=== PATIENT | female | born 1955 | race African-American/Black ===

== ENCOUNTER 2017-07-06 12:01 | Inpatient (IN) | END 2017-07-15 14:20 | disposition home health service (06) | DRG 871 ==

== ENCOUNTER 2018-07-17 09:06 | Emergency (ER) | payer MEDICARE, OTHER, MEDICAID ==
[~2018-07-17] VITALS: Ht 152.4 cm; Wt 100.0 kg
[~2018-07-17 09:06] MED LIST: ADV10050 INHALATION; ADV25050 INHALATION; ALBU8.5H8 INH; AMLO-145 PO; ATOR40TA68 PO; FENT1PAT7 TD; FERR1TAB14 PO; LANT3I SC; LORA-444 PO; METF-849 PO; MONT10TA24 PO; ROPI0.253 PO; ZIPR60CA2 PO; ZOF8 PO
[2018-07-17 09:14] VITALS: Ht 152.4 cm; Wt 100.0 kg
[2018-07-17] MEDS ORDERED: DIPHTH/TET/ACEL PERTUSS (ADULT) 0.5 ML VIAL IM* ONE (09:30)
[2018-07-17] MEDS ORDERED: HYDROCODONE/APAP (5/325) TAB PO ONE (10:30)
[2018-07-17] MEDS ORDERED: LIDOCAINE 1% (MDV) 20 ML INJ SC ONE (11:30)
[2018-07-17] MEDS ORDERED: KETOROLAC 15 MG INJ IM STA (12:21)
--- NOTE | 2018-07-17 12:51 | ERD ---
ER Documentation Chief Complaint Chief Complaint LAC TO R ANKLE AFTER MECHINCAL FALL NO KO HPI This is a 63-year-old female presents for evaluation of mechanical fall, she sustained a laceration to her right thigh. Also complains of shoulder and clavicle pain on the right side. She had no head trauma, no loss of c onsciousness, she denies any neck pain. She has not any blood thinners, she is chronically on oxygen. ROS All systems reviewed and are negative except as per history of present illness. Medications Home Meds Active Scripts Salmeterol Xinaf-Fluticasone* (Advair*) 100/50 Diskus Inhaler, 1 INH INHALATION BID, #1 INHALER Prov:AGO,MALCOLM V. PIGMENT PRESSER 07/15/17 Albuterol Sulfate* (Proair HFA*) 8.5 Gm Hfa.aer.ad, 2 PUFF INH Q4H PRN for WHEEZING AND SOB, #1 INHALER Prov:GAO,MALCOLM V. PIGMENT PRESSER 07/15/17 Ferrous Fumarate/Ascorbic Acid (Jitendra-Sequels 65-25 mg Caplet) 1 Each Tablet.er, 1 TAB PO DAILY, #30 TAB Prov:GAO,MALCOLM V. PIGMENT PRESSER 07/15/17 Montelukast Sodium* (Montelukast Sodium*) 10 Mg Tablet, 10 MG PO HS, #30 TAB Prov:GAO,MALCOLM V. PIGMENT PRESSER 07/15/17 Reported Medications Fentanyl Patch* (Duragesic Patch*) 12 Mcg/Hr Transdermal Patch, 1 PATCH TD Q72H PRN for PAIN, PATCH 07/07/17 Insulin Glargine* (Lantus*) 100 Unit/Ml Soln, 6 UNIT SC DAILY, #1 VIAL 07/06/17 Metformin* (Glucophage*) 500 Mg Tab, 500 MG PO BID, #30 TAB 07/06/17 Lorazepam* (Ativan*) 2 Mg Tablet, 2 MG PO DAILY PRN for ANXIETY, #30 TAB 07/06/17 Amlodipine Besylate* (Amlodipine Besylate*) 5 Mg Tablet, 5 MG PO DAILY, #30 TAB 07/06/17 Ropinirole Hcl* (Ropinirole Hcl*) 0.25 Mg Tablet, 0.25 MG PO HS, TAB 07/06/17 Atorvastatin* (Atorvastatin*) 40 Mg Tablet, 40 MG PO QHS, #30 TAB 07/06/17 Ondansetron Hcl* (Zofran*) 8 Mg Tab, 8 MG PO Q8 PRN for NAUSEA AND OR VOMITING, TAB 07/06/17 Salmeterol Xinaf/Fluticasone* (Advair*) 250-50 Diskus Inhaler, 1 INH INHALATION BID, #1 INHALER 07/06/17 Ziprasidone* (Geodon*) 60 Mg Capsule, 60 MG PO BID, CAP 07/06/17 Allergies Allergies: Coded Allergies: No Known Allergy (Unverified , 07/06/17) PMhx/Soc History of Surgery: Yes Anesthesia Reaction: No 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 Neck: Full range of motion. No meningismus. Resp: Clear to auscultation bilaterally Cardio: Regular rate and rhythm, no murmurs Abd: Soft, non tender, non distended. Normal bowel sounds Skin: No petechiae or rashes Back: No midline or flank tenderness Ext: There is tenderness over the distal clavicle, range of motion is limited secondary to pain, there is no axillary numbness, radial pulses 2+. There is a 5 cm laceration that is vertical over the lateral side of the lower leg, tibial pulses 2+, plantar and dorsiflexion is intact. Neur: Awake and alert Psych: Normal Mood and Affect Results 24 hrs Current Medications Medications Dose Sig/Benjamin Start Time Status Last (Trade) Ordered Route PRN Stop Time Admin Dose Reason Admin Diphtheria/ 0.5 ml ONCE ONCE 07/17/18 DC 07/17/18 Tetanus/Acell IM* 09:30 07/17/18 09:32 Pertussis 09:31 (Adacel) 2 tab ONCE ONCE 07/17/18 DC 07/17/18 Acetaminophen PO 10:30 07/17/18 10:37 / 10:31 Hydrocodone Bitart (Sagle (5/325)) Lidocaine 5 ml ONCE ONCE 07/17/18 DC 07/17/18 (Xylocaine SC 11:30 07/17/18 11:31 1% (Mdv) 20 11:31 ml) Ketorolac 15 mg ONCE STAT 07/17/18 DC 07/17/18 Tromethamine IM 12:21 07/17/18 12:29 (Toradol) 12:23 Procedures/MDM This is a 63-year-old female who presents for evaluation of mechanical fall, her x-ray confirmed distal clavicle fracture, that is closed, she has had no laceration without any evidence of fracture. Laceration was repaired without complications, she had no neurovascular deficits, sling was placed and patient was provided copies of her imaging advised to follow-up with her doctor soon as possible for orthopedic referral. At discharge she was in no acute distress. Laceration Repair by me: Anesthesia: 1% lidocaine without epinephrine locally Location: Right lower leg Tendon/Joint/Nerves: No injury Foreign body: None detected after copious irrigation and exploration Technique: Running suture Complexity: No subcutaneous sutures/mucosal repair/edge excision Post Closure Length: 5 cm Patient's bleeding was easily controlled in the department and there is no indication of anemia. No evidence of compartment syndrome, neurologic injury, vascular injury, open joint, tendon laceration, or foreign body. Patient is appropriate for outpatient follow up. 48 hour wound check. Scar minimization instructions given. Departure Diagnosis: Primary Impression: Laceration Additional Impression: Clavicle fracture Encounter type: initial encounter Clavicle location: unspecified part of clavicle Fracture type: closed Fracture alignment: displaced Laterality: right Qualified Codes: S42.001A - Fracture of unspecified part of right clavicle, initial encounter for closed fracture Condition: Stable Patient Instructions: Sammy Mcclendon DAVID MD Jul 17, 2018 12:51
[2018-07-17 13:21] VITALS: BP 134/64; PULSE 74; RESP 20
== END 2018-07-17 13:33 | disposition home or self-care (01) ==
LOC: E/R 09:06
DX: S42.001A Fracture of unspecified part of right clavicle, initial encounter for closed fracture (principal); R40.2142 Coma scale, eyes open, spontaneous, at arrival to emergency department; R40.2362 Coma scale, best motor response, obeys commands, at arrival to emergency department; F17.210 Nicotine dependence, cigarettes, uncomplicated; M25.511 Pain in right shoulder; W18.30XA Fall on same level, unspecified, initial encounter; Y92.9 Unspecified place or not applicable; Z23 Encounter for immunization; Z79.4 Long term (current) use of insulin
CPT/HCPCS: 12002; 71045; 73030; 73590; 90471; 90715; 96372; 99284; J1885

== ENCOUNTER 2018-07-27 10:57 | Emergency (ER) | payer MEDICARE, OTHER, MEDICAID ==
[~2018-07-27] VITALS: Ht 165.1 cm; Wt 79.5 kg
[2018-07-27 11:12] VITALS: BP 116/58; PULSE 102; RESP 22; Ht 165.1 cm; Wt 79.5 kg
--- NOTE | 2018-07-27 12:48 | ERD ---
ER Documentation Chief Complaint Chief Complaint WOUND CHECK WITH POSSIBLE SUTURE REMOVAL HPI 63-year-old female presenting for suture removal. Patient had sutures placed in her right lateral leg 10 days ago after she cut herself on a brick wall. She states that there is no pain or swelling noted to the site. She has no fevers. Medical history: CA. NKDA. Surgical history denies. Social history smokes pack a day. ROS All systems reviewed and are negative except as per history of present illness. Medications Home Meds Active Scripts Salmeterol Xinaf-Fluticasone* (Advair*) 100/50 Diskus Inhaler, 1 INH INHALATION BID, #1 INHALER Prov:GAO,MALCOLM V. COKE INSPECTOR 07/15/17 Albuterol Sulfate* (Proair HFA*) 8.5 Gm Hfa.aer.ad, 2 PUFF INH Q4H PRN for WHEEZING AND SOB, #1 INHALER Prov:GAO,MALCOLM V. COKE INSPECTOR 07/15/17 Ferrous Fumarate/Ascorbic Acid (Jitendra-Sequels 65-25 mg Caplet) 1 Each Tablet.er, 1 TAB PO DAILY, #30 TAB Prov:GAO,MALCOLM V. COKE INSPECTOR 07/15/17 Montelukast Sodium* (Montelukast Sodium*) 10 Mg Tablet, 10 MG PO HS, #30 TAB Prov:GAO,MALCOLM V. COKE INSPECTOR 07/15/17 Reported Medications Fentanyl Patch* (Duragesic Patch*) 12 Mcg/Hr Transdermal Patch, 1 PATCH TD Q72H PRN for PAIN, PATCH 07/07/17 Insulin Glargine* (Lantus*) 100 Unit/Ml Soln, 6 UNIT SC DAILY, #1 VIAL 07/06/17 Metformin* (Glucophage*) 500 Mg Tab, 500 MG PO BID, #30 TAB 07/06/17 Lorazepam* (Ativan*) 2 Mg Tablet, 2 MG PO DAILY PRN for ANXIETY, #30 TAB 07/06/17 Amlodipine Besylate* (Amlodipine Besylate*) 5 Mg Tablet, 5 MG PO DAILY, #30 TAB 07/06/17 Ropinirole Hcl* (Ropinirole Hcl*) 0.25 Mg Tablet, 0.25 MG PO HS, TAB 07/06/17 Atorvastatin* (Atorvastatin*) 40 Mg Tablet, 40 MG PO QHS, #30 TAB 07/06/17 Ondansetron Hcl* (Zofran*) 8 Mg Tab, 8 MG PO Q8 PRN for NAUSEA AND OR VOMITING, TAB 07/06/17 Salmeterol Xinaf/Fluticasone* (Advair*) 250-50 Diskus Inhaler, 1 INH INHALATION BID, #1 INHALER 07/06/17 Ziprasidone* (Geodon*) 60 Mg Capsule, 60 MG PO BID, CAP 07/06/17 Allergies Allergies: Coded Allergies: No Known Allergy (Unverified , 07/06/17) PMhx/Soc History of Surgery: Yes Anesthesia Reaction: No 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 There are no rales, wheezes or rhonchi. HEART: Regular rate and rhythm. No murmurs, clicks, rubs or gallops. No S3 or S4. EXTREMITIES: Equal pulses bilaterally. There is no peripheral clubbing, cyanosi s or edema. No focal swelling or erythema. Full range of motion. Grossly neurovascularly intact. SKIN: Healed laceration with sutures intact noted to right lower extremity. No dehiscence of the wound and no erythema. Procedures/MDM ER course: Suture removed without complication. MDM: 63-year-old female presenting for suture removals. Patient sutures removed without complication in the ER. I have low suspicion for wound infection. I have low suspicion for neuro deficit. Patient is discharged stricter precautions and told to follow-up with primary care within 1-2 days for close evaluation. Patient is told symptoms change or worsen to return immediately to the ER. All questions answered at discharge Departure Diagnosis: Primary Impression: Visit for suture removal Condition: Stable Patient Instructions: Suture Removal, No Complication Referrals: [facility] YOU HAVE RECEIVED A MEDICAL SCREENING EXAM AND THE RESULTS INDICATE THAT YOU DO NOT HAVE A CONDITION THAT REQUIRES URGENT TREATMENT IN THE EMERGENCY DEPARTMENT. FURTHER EVALUATION AND TREATMENT OF YOUR CONDITION CAN WAIT UNTIL YOU ARE SEEN IN YOUR DOCTORS OFFICE WITHIN THE NEXT 1-2 DAYS. IT IS YOUR RESPONSIBILITY TO MAKE AN APPOINTMENT FOR FOLOW-UP CARE. IF YOU HAVE A PRIMARY DOCTOR --you should call your primary doctor and schedule an appointment IF YOU DO NOT HAVE A PRIMARY DOCTOR YOU CAN CALL OUR PHYSICIAN REFERRAL HOTLINE AT IF YOU CAN NOT AFFORD TO SEE A PHYSICIAN YOU CAN CHOSE FROM THE FOLLOW[facility] [address] [facility]. [facility] [address] [facility]. [facility] [address] [facility] [facility] [address] [facility]. [facility] [address] [facility]. [facility] [address] Additional Instructions: Call your primary care doctor TOMORROW for an appointment during the next 1-2 days.See the doctor sooner or return here if your condition worsens before your appointment time. ADALBERTO YIN PA-C Jul 27, 2018 12:48
== END 2018-07-27 12:37 | disposition home or self-care (01) ==
LOC: FTE 10:57
DX: Z48.02 Encounter for removal of sutures (principal); Z79.4 Long term (current) use of insulin; Z87.891 Personal history of nicotine dependence
CPT/HCPCS: 99281

== ENCOUNTER 2018-12-03 15:00 | Emergency (ER) | payer MEDICARE, OTHER, MEDICAID ==
[~2018-12-03] VITALS: Ht 165.1 cm; Wt 79.5 kg
[2018-12-03 15:12] VITALS: Ht 165.1 cm; Wt 79.5 kg
[2018-12-03] MEDS ORDERED: SOD CHLORIDE 0.9% 800 ML IV ONE (19:00)
[2018-12-03] MEDS ORDERED: NITR-58 PO (19:51)
[2018-12-03] MEDS ORDERED: IBUPROFEN 800 MG TAB PO ONE (20:00)
[2018-12-03] MEDS ORDERED: NITROFURANTOIN (SR) 100 MG CAP PO ONE (20:00)
[2018-12-03 20:26] VITALS: BP 108/71; PULSE 79; RESP 20
--- NOTE | 2018-12-03 21:40 | ERD ---
ER Documentation Chief Complaint Chief Complaint HIGH BLOOD SUGAR, BLISTERS ON FEET, COLD SYMPTOMS HPI Patient is a 63-year-old female with diabetes who presents with "high sugar". She said that it started 2 days ago. She says that she takes her insulin and pills as directed. She has had frequent urination but no fevers. Upon review of old medical records this is the patient's fourth visit to the ER since 2017. She says that she does have a primary doctor. ROS All systems reviewed and are negative except as per history of present illness. Medications Home Meds Active Scripts Nitrofurantoin Monohyd Macrocr* (Macrobid*) 100 Mg Capsr, 100 MG PO BID for 7 Days, CAP Prov:BRYCE STANTON MD 12/03/18 Salmeterol Xinaf-Fluticasone* (Advair*) 100/50 Diskus Inhaler, 1 INH INHALATION BID, #1 INHALER Prov:MALCOLM GAO V. LAUNCH OPERATOR 07/15/17 Albuterol Sulfate* (Proair HFA*) 8.5 Gm Hfa.aer.ad, 2 PUFF INH Q4H PRN for WHEEZING AND SOB, #1 INHALER Prov:MALCOLM GAO V. LAUNCH OPERATOR 07/15/17 Ferrous Fumarate/Ascorbic Acid (Jitendra-Sequels 65-25 mg Caplet) 1 Each Tablet.er, 1 TAB PO DAILY, #30 TAB Prov:MALCOLM GAO V. LAUNCH OPERATOR 07/15/17 Montelukast Sodium* (Montelukast Sodium*) 10 Mg Tablet, 10 MG PO HS, #30 TAB Prov:MALCOLM GAO V. LAUNCH OPERATOR 07/15/17 Reported Medications Fentanyl Patch* (Duragesic Patch*) 12 Mcg/Hr Transdermal Patch, 1 PATCH TD Q72H PRN for PAIN, PATCH 07/07/17 Insulin Glargine* (Lantus*) 100 Unit/Ml Soln, 6 UNIT SC DAILY, #1 VIAL 07/06/17 Metformin* (Glucophage*) 500 Mg Tab, 500 MG PO BID, #30 TAB 07/06/17 Lorazepam* (Ativan*) 2 Mg Tablet, 2 MG PO DAILY PRN for ANXIETY, #30 TAB 07/06/17 Amlodipine Besylate* (Amlodipine Besylate*) 5 Mg Tablet, 5 MG PO DAILY, #30 TAB 07/06/17 Ropinirole Hcl* (Ropinirole Hcl*) 0.25 Mg Tablet, 0.25 MG PO HS, TAB 07/06/17 Atorvastatin* (Atorvastatin*) 40 Mg Tablet, 40 MG PO QHS, #30 TAB 07/06/17 Ondansetron Hcl* (Zofran*) 8 Mg Tab, 8 MG PO Q8 PRN for NAUSEA AND OR VOMITING, TAB 07/06/17 Salmeterol Xinaf/Fluticasone* (Advair*) 250-50 Diskus Inhaler, 1 INH INHALATION BID, #1 INHALER 07/06/17 Ziprasidone* (Geodon*) 60 Mg Capsule, 60 MG PO BID, CAP 07/06/17 Allergies Allergies: Coded Allergies: No Known Allergy (Unverified , 07/06/17) PMhx/Soc History of Surgery: Yes Anesthesia Reaction: No 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 Neck: Full range of motion. No meningismus. Resp: Clear to auscultation bilaterally Cardio: Regular rate and rhythm, no murmurs Abd: Soft, non tender, non distended. Normal bowel sounds Skin: No petechiae or rashes Back: No midline or flank tenderness Ext: No cyanosis, or edema Neur: Awake and alert Psych: Normal Mood and Affect Result Diagram: 12/03/18191012/03/181910 Results 24 hrs Laboratory Tests Test 12/03/18 15:18 12/03/18 18:55 12/03/18 19:11 12/03/18 19:17 Bedside Glucose 207 mg/dL 150 mg/dL Blood Gas Blood venous Specimen Source Arterial Blood 12/03/2018 7:10: Date Drawn 13 PM Arterial Blood VENOUS LINE Gas Puncture Site [place] Test N/A Venous Blood pH 7.412 Venous Blood 43.7 mmHG pCO2 (Temp Corrected) Venous Blood pO2 30.9 mmHG (Temp Corrected) Venous Blood 27.2 mmol/L HCO3 Venous Blood 60.8 mmHG Oxygen Saturation Venous Blood 2.2 mmol/L Base Excess Venous Blood 14.2 g/dl Total Hemoglobin Venous Blood 60.2 % Oxyhemoglobin Venous Blood 0.2 % Methemoglobin Carboxyhemoglobi 0.8 % n Blood Gas 37.0 C Temperature Blood Gas ROOM AIR Modality FiO2 21.0 % Blood Gas KM Notified Whom Blood Gas 12/03/2018 7:19: Notified Time 43 PM White Blood 4.5 10^3/ul Count Red Blood Count 5.35 10^6/ul Hemoglobin 13.0 g/dl Hematocrit 43.3 % Mean Corpuscular 80.9 fl Volume Mean Corpuscular 24.3 pg Hemoglobin Mean Corpuscular 30.0 g/dl Hemoglobin Karine nt Red Cell 15.8 % Distribution Width Platelet Count 161 10^3/UL Mean Platelet 10.5 fl Volume Immature 1.100 % Granulocytes % Neutrophils % 56.5 % Lymphocytes % 24.4 % Monocytes % 13.9 % Eosinophils % 3.4 % Basophils % 0.7 % Nucleated Red 0.0 /100WBC Blood Cells % Immature 0.050 10^3/ul Granulocytes # Neutrophils # 2.5 10^3/ul Lymphocytes # 1.1 10^3/ul Monocytes # 0.6 10^3/ul Eosinophils # 0.2 10^3/ul Basophils # 0.0 10^3/ul Nucleated Red 0.0 10^3/ul Blood Cells # Urine Color YELLOW Urine Clarity CLOUDY Urine pH 5.0 Urine Specific 1.025 [place] Urine Ketones NEGATIVE mg/dL Urine Nitrite NEGATIVE mg/dL Urine Bilirubin NEGATIVE mg/dL Urine NEGATIVE mg/dL Urobilinogen Urine Leukocyte 2+ Cherrie/ul Esterase Urine 2 /HPF Microscopic RBC Urine 34 /HPF Microscopic WBC Urine Squamous FEW /HPF Epithelial Cells Urine Bacteria MANY /HPF Urine Mucus MANY /HPF Urine Hemoglobin NEGATIVE mg/dL Urine Glucose 1+ mg/dL Urine Total 1+ mg/dl Protein Sodium Level 141 mmol/L Potassium Level 4.0 mmol/L Chloride Level 104 mmol/L Carbon Dioxide 29 mmol/L Level Anion Gap 8 Blood Urea 15 mg/dl Nitrogen Creatinine 0.79 mg/dl Est Glomerular > 60 mL/min Filtrat Rate mL/min Glucose Level 174 mg/dl Calcium Level 10.0 mg/dl Phosphorus Level 3.3 mg/dl Magnesium Level 2.3 mg/dl Current Medications Medications Dose Sig/Benjamin Start Time Status Last (Trade) Ordered Route PRN Stop Time Admin Dose Reason Admin Sodium 800 ml @ ONCE ONCE 12/03/18 DC 12/03/18 Chloride 800 mls/hr IV 19:00 19:19 12/03/18 19:59 100 mg ONCE ONCE 12/03/18 DC 12/03/18 Nitrofurantoi PO 20:00 19:57 n 12/03/18 20:01 Macrocrystals (Macrobid) Ibuprofen 800 mg ONCE ONCE 12/03/18 DC 12/03/18 (Motrin) PO 20:00 19:57 12/03/18 20:01 Procedures/MDM Smoking Cessation Therapy: Pt. was lectured for greater than 3 minutes on the health risks of continued smoking and the benefits of cessation. Patient is a 63-year-old female who was concerned about hyperglycemia. Her sugars are normal in the emergency department. However she was found to have acute cystitis. I doubt hyperglycemia or DKA. The patient will be treated as an outpatient with Macrobid. She was given the first dose in the emergency department. I doubt sepsis and I do not believe patient requires inpatient admission at this time. She should follow-up with her primary doctor within 24 to 48 hours. She can return sooner for any worsening symptoms. Departure Diagnosis: Primary Impression: Cystitis Condition: Fair Patient Instructions: Cystitis Referrals: Your doctor Additional Instructions: Call your primary care doctor TOMORROW for an appointment during the next 1-2 days.See the doctor sooner or return here if your condition worsens before your appointment time. BRYCE STANTON MD December 03, 2018 21:40
== END 2018-12-03 20:28 | disposition home or self-care (01) ==
LOC: E/R 15:00
DX: N30.90 Cystitis, unspecified without hematuria (principal); F17.210 Nicotine dependence, cigarettes, uncomplicated; E11.9 Type 2 diabetes mellitus without complications; Z79.4 Long term (current) use of insulin
CPT/HCPCS: 36415; 80048; 81001; 82803; 82962; 83735; 84100; 85025; 99284; J7030

== ENCOUNTER 2018-12-07 09:01 | Inpatient (IN) | payer MEDICARE, OTHER, MEDICAID ==
[~2018-12-07] VITALS: Ht 162.6 cm; Wt 74.9 kg
[~2018-12-07 09:01] MED LIST changes: +NITR-58 PO
[2018-12-07] MEDS ORDERED: ALBUTEROL 0.083% (NEB) 2.5 MG/3 ML AMP HHN STA (09:28)
[2018-12-07] MEDS ORDERED: AZITHROMYCIN 500MG/NS (PMX) 250 ML IV STA (09:28)
[2018-12-07] MEDS ORDERED: CEFTRIAXONE 1 GM/50 ML (PMX) 50 ML IVPB STA (09:28)
[2018-12-07] MEDS ORDERED: METHYLPREDNISOLONE 125 MG INJ IV ONE (09:30)
[2018-12-07] MEDS ORDERED: IPRATROPIUM (NEB) 0.5 MG/2.5 ML AMP INH ONE (09:30)
[2018-12-07] MEDS ORDERED: KETOROLAC 30 MG INJ IV STA (10:45)
[2018-12-07] MEDS ORDERED: AMLO5TAB4 PO (11:24)
[2018-12-07] MEDS ORDERED: ATOR40TA68 PO (11:25)
[2018-12-07] MEDS ORDERED: LANT3I SC (11:25)
[2018-12-07] MEDS ORDERED: NOVO3I SC (11:26)
[2018-12-07] MEDS ORDERED: LORA-444 PO (11:26)
[2018-12-07] MEDS ORDERED: METF500T24 PO (11:27)
[2018-12-07] MEDS ORDERED: ROPI0.253 PO (11:27)
[2018-12-07] MEDS ORDERED: ADV25050 INHALATION (11:27)
[2018-12-07] MEDS ORDERED: ZIPR60CA2 PO (11:28)
[2018-12-07] MEDS ORDERED: ACETAMINOPHEN 325 MG TAB PO PRN (11:30)
[2018-12-07] MEDS ORDERED: ONDANSETRON 4 MG INJ IV PRN (11:30)
--- NOTE | 2018-12-07 12:30 | ERD ---
ER Documentation Chief Complaint Chief Complaint sob , seen here 2 days ago c/o same HPI Patient is a 63-year-old female with COPD and diabetes who presents with shortness of breath. The symptoms started today. The patient has a history of COPD. The patient has had no treatment as of yet. The patient is currently on antibiotics for a urine infection. Her primary doctor is Dr. Bailey. Upon review of old medical records the patient has multiple visits to the ER for various complaints. I saw her myself just a few days ago. ROS All systems reviewed and are negative except as per history of present illness. Medications Home Meds Reported Medications Ziprasidone* (Geodon*) 60 Mg Capsule, 60 MG PO BID, CAP 12/07/18 Salmeterol Xinaf/Fluticasone* (Advair*) 250-50 Diskus Inhaler, 1 INH INHALATION BID, #1 INHALER 12/07/18 Ropinirole Hcl* (Ropinirole Hcl*) 0.25 Mg Tablet, 0.25 MG PO HS, TAB 12/07/18 Metformin Hcl* (Metformin Hcl*) 500 Mg Tablet, 500 MG PO WITH BREAKFAST DINNE, #60 TAB 12/07/18 Lorazepam* (Ativan*) 2 Mg Tablet, 2 MG PO DAILY PRN for ANXIETY, #30 TAB 12/07/18 Insulin Aspart* (Novolog Insulin Pen*) 100 Unit/Ml Soln, 4 UNIT SC WITH MEALS, EA 12/07/18 Insulin Glargine* (Lantus*) 100 Unit/Ml Soln, 4 UNIT SC DAILY, #1 VIAL 12/07/18 Atorvastatin* (Atorvastatin*) 40 Mg Tablet, 40 MG PO QHS, #30 TAB 12/07/18 Amlodipine Besylate* (Norvasc*) 5 Mg Tablet, 5 MG PO DAILY, TAB 12/07/18 Discontinued Reported Medications Fentanyl Patch* (Duragesic Patch*) 12 Mcg/Hr Transdermal Patch, 1 PATCH TD Q72H PRN for PAIN, PATCH 07/07/17 Insulin Glargine* (Lantus*) 100 Unit/Ml Soln, 6 UNIT SC DAILY, #1 VIAL 07/06/17 Metformin* (Glucophage*) 500 Mg Tab, 500 MG PO BID, #30 TAB 07/06/17 Lorazepam* (Ativan*) 2 Mg Tablet, 2 MG PO DAILY PRN for ANXIETY, #30 TAB 07/06/17 Amlodipine Besylate* (Amlodipine Besylate*) 5 Mg Tablet, 5 MG PO DAILY, #30 TAB 07/06/17 Ropinirole Hcl* (Ropinirole Hcl*) 0.25 Mg Tablet, 0.25 MG PO HS, TAB 07/06/17 Atorvastatin* (Atorvastatin*) 40 Mg Tablet, 40 MG PO QHS, #30 TAB 07/06/17 Ondansetron Hcl* (Zofran*) 8 Mg Tab, 8 MG PO Q8 PRN for NAUSEA AND OR VOMITING, TAB 07/06/17 Salmeterol Xinaf/Fluticasone* (Advair*) 250-50 Diskus Inhaler, 1 INH INHALATION BID, #1 INHALER 07/06/17 Ziprasidone* (Geodon*) 60 Mg Capsule, 60 MG PO BID, CAP 07/06/17 Discontinued Scripts Nitrofurantoin Monohyd Macrocr* (Macrobid*) 100 Mg Capsr, 100 MG PO BID for 7 Days, CAP Prov:BRYCE STANTON MD 12/03/18 Salmeterol Xinaf-Fluticasone* (Advair*) 100/50 Diskus Inhaler, 1 INH INHALATION BID, #1 INHALER Prov:GAO,MALCOLM V. [employer]AB POLISHER 07/15/17 Albuterol Sulfate* (Proair HFA*) 8.5 Gm Hfa.aer.ad, 2 PUFF INH Q4H PRN for WH EEZING AND SOB, #1 INHALER Prov:GAO,MALCOLM V. [employer]ER 07/15/17 Ferrous Fumarate/Ascorbic Acid (Jitendra-Sequels 65-25 mg Caplet) 1 Each Tablet.er, 1 TAB PO DAILY, #30 TAB Prov:GAO,MALCOLM V. [employer]ER 07/15/17 Montelukast Sodium* (Montelukast Sodium*) 10 Mg Tablet, 10 MG PO HS, #30 TAB Prov:GAO,MALCOLM V. 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) Hx Respiratory Disorders: Yes Hx Cardiac Disorders: No Hx Psychiatric Problems: Yes Hx Miscellaneous Medical Probl: No Hx Alcohol Use: No Hx Substance Use: No Hx Tobacco Use: Yes (2 PACKS /DAY) FmHx Family History: diabetes Physical Exam Vitals Vital Signs Date Temp Pulse Resp B/P (MAP) Pulse Ox O2 O2 Flow FiO2 Time Delivery Rate 12/07/18 98.8 114 22 124/63 95 Nasal 2.0 11:00 (83) Cannula 12/07/18 105 20 136/71 95 Nasal 4.0 10:00 (92) Cannula 12/07/18 Simple 10 09:54 Mask 12/07/18 10.0 09:54 12/07/18 106 30 92 Nasal 2.0 09:36 Cannula 12/07/18 98.1 110 32 140/82 92 09:09 (101) Physical Exam Const: Moderate distress, unable to speak in full sentences Head: Atraumatic Eyes: Normal Conjunctiva ENT: Normal External Ears, Nose and Mouth. Neck: Full range of motion. No meningismus. Resp: Wheezing diffusely, unable to complete full sentences Cardio: Regular rate and rhythm, no murmurs Abd: Soft, non tender, non distended. Normal bowel sounds Skin: No petechiae or rashes Back: No midline or flank tenderness Ext: No cyanosis, or edema Neur: Awake and alert Psych: Normal Mood and Affect Result Diagram: 12/07/1894712/07/18947 Results 24 hrs Laboratory Tests Test 12/07/18 09:48 12/07/18 09:52 White Blood Count 6.7 10^3/ul Red Blood Count 5.11 10^6/ul Hemoglobin 12.5 g/dl Hematocrit 41.5 % Mean Corpuscular Volume 81.2 fl Mean Corpuscular Hemoglobin 24.5 pg Mean Corpuscular Hemoglobin Concent 30.1 g/dl Red Cell Distribution Width 15.9 % Platelet Count 132 10^3/UL Mean Platelet Volume 10.5 fl Immature Granulocytes % 0.300 % Neutrophils % 76.5 % Lymphocytes % 13.5 % Monocytes % 8.6 % Eosinophils % 0.6 % Basophils % 0.5 % Nucleated Red Blood Cells % 0.0 /100WBC Immature Granulocytes # 0.020 10^3/ul Neutrophils # 5.1 10^3/ul Lymphocytes # 0.9 10^3/ul Monocytes # 0.6 10^3/ul Eosinophils # 0.0 10^3/ul Basophils # 0.0 10^3/ul Nucleated Red Blood Cells # 0.0 10^3/ul Sodium Level 142 mmol/L Potassium Level 3.3 mmol/L Chloride Level 108 mmol/L Carbon Dioxide Level 22 mmol/L Anion Gap 12 Blood Urea Nitrogen 13 mg/dl Creatinine 0.71 mg/dl Est Glomerular Filtrat Rate mL/min > 60 mL/min Glucose Level 303 mg/dl Calcium Level 9.1 mg/dl Troponin I < 0.012 ng/ml POC Venous Lactate 1.7 mmol/L Current Medications Medications Dose Sig/Benjamin Start Time Status Last (Trade) Ordered Route PRN Stop Time Admin Dose Reason Admin 125 mg ONCE ONCE 12/07/18 DC 12/07/18 Methylprednis IV 09:30 10:05 olone Sodium 12/07/18 09:31 Succinate (Solu-Medrol) Albuterol 5 mg ONCE STAT 12/07/18 DC 12/07/18 (Proventil HHN 09:28 09:36 0.083% (Neb)) 12/07/18 09:29 Ipratropium 0.5 mg ONCE ONCE 12/07/18 DC 12/07/18 [place] INH 09:30 09:36 (Atrovent 12/07/18 09:31 0.02% (Neb)) Azithromycin 250 ml @ ONCE STAT 12/07/18 DC 12/07/18 250 mls/hr IV 09:28 11:08 12/07/18 10:27 Ceftriaxone 50 ml @ ONCE STAT 12/07/18 DC 12/07/18 Sodium 100 mls/hr IVPB 09:28 10:05 12/07/18 09:57 Ketorolac 30 mg ONCE STAT 12/07/18 DC 12/07/18 Tromethamine IV 10:45 11:08 (Toradol) 12/07/18 10:46 Ondansetron 4 mg BRIDGE ORDER 12/07/18 HCl (Zofran PRN IV 11:30 Inj) NAUSEA/VOMITI 12/08/18 11:29 NG 650 mg ER BRIDGE 12/07/18 Acetaminophen PRN PO 11:30 (Tylenol .MILD PAIN 12/08/18 11:29 Tab) 1-3 OR TEMP Procedures/MDM EKG read by me: Rate/Rhythm: Sinus tachycardia rate of 106 Intervals: Normal Impression: Tachycardia without ischemia Chest x-ray read by radiology. Smoking Cessation Therapy: Pt. was lectured for greater than 3 minutes on the health risks of continued smoking and the benefits of cessation. Patient is a 63-year-old female with COPD and diabetes and smoking who presents with shortness of breath. I believe the patient has an acute COPD exacerbation. The patient was given albuterol, Atrovent, and Solu-Medrol. The patient was also given ceftriaxone and Zithromax for presumed bronchitis. The patient will be admitted to the care of the panel team to a medical surgical bed for continued breathing treatments and steroids. I doubt sepsis, pneumonia, or pneumothorax. Departure Diagnosis: Primary Impression: COPD exacerbation Additional Impression: Shortness of breath Condition: BRYCE Parra MD December 07, 2018 12:30
[2018-12-07] MEDS ORDERED: HYDROmorphONE 2 MG TAB PO ONE (15:00)
--- NOTE | 2018-12-07 15:29 | HP ---
Date/Time of Note Date/Time of Note DATE: 12/07/18 TIME: 15:09 Assessment/Plan VTE Prophylaxis SCD applied (from Nsg): Yes Pharmacological prophylaxis: heparin Lines/Catheters IV Catheter Type (from Nrsg): Port-A-CAth Assessment/Plan Hospital Course Alert Oriented Tardive dyskinesia of face Edentulous Mild tachypnea, nonlabored Audible wheezing, productive cough RRR Soft nt nd no edema Flat neck veins 63 yo female with h/o COPD, breast cancer, schizophernia, DMII presents wtih acute hypoxic respiratory failure likely 2/2 copd exacerbation COPD exacerbation: - Bronchodilators, steroids, abx, and O2 as needed Schizophrenia: - Continue geodon DMII: - Basal/bolus insulin Result Diagram: 12/07/1894712/07/18947 Results 24hrs Laboratory Tests Test 12/07/18 09:48 12/07/18 09:52 12/07/18 12:34 White Blood Count 6.7 # Red Blood Count 5.11 Hemoglobin 12.5 Hematocrit 41.5 Mean Corpuscular Volume 81.2 L Mean Corpuscular Hemoglobin 24.5 L Mean Corpuscular Hemoglobin Concent 30.1 L Red Cell Distribution Width 15.9 H Platelet Count 132 L Mean Platelet Volume 10.5 H Immature Granulocytes % 0.300 Neutrophils % 76.5 Lymphocytes % 13.5 L Monocytes % 8.6 Eosinophils % 0.6 Basophils % 0.5 Nucleated Red Blood Cells % 0.0 Immature Granulocytes # 0.020 Neutrophils # 5.1 Lymphocytes # 0.9 Monocytes # 0.6 Eosinophils # 0.0 Basophils # 0.0 Nucleated Red Blood Cells # 0.0 Sodium Level 142 Potassium Level 3.3 L Chloride Level 108 Carbon Dioxide Level 22 Anion Gap 12 Blood Urea Nitrogen 13 Creatinine 0.71 Est Glomerular Filtrat Rate mL/min > 60 Glucose Level 303 H Calcium Level 9.1 Troponin I < 0.012 POC Venous Lactate 1.7 Lactic Acid Level 4.0 *H HPI/ROS Admit Date/Time Admit Date/Time Hx of Present Illness 63 yo female with COPD, schizophrenia, neuorpathy and DMII who presents wtih SOB [place] has had SOB and wheeazing for at least the last week. Has cough with productive sputum. No fevers or chills. Came to ED a few days ago for same symptoms and sent home. Returns with walteritnued sOB, cough, wheeze ROS Constitutional: no complaints, improved Eyes: no complaints ENT: no complaints Respiratory: no complaints Cardiovascular: no complaints Gastrointestinal: no complaints Genitourinary: no complaints Musculoskeletal: no complaints Skin: no complaints Neurologic: no complaints Endocrine: no complaints Lymphatic: no complaints Psychological: no complaints, nl mood/affect Immunologic: no complaints PMH/Family/Social Past Medical History Breast cancer COPD Schizophrenia Medications Current Medications Ondansetron HCl (Zofran Inj) 4 mg BRIDGE ORDER PRN IV NAUSEA/VOMITING; Start 12/07/18 at 11:30; Stop 12/08/18 at 11:29 Acetaminophen (Tylenol Tab) 650 mg ER BRIDGE PRN PO .MILD PAIN 1-3 OR TEMP; Start 12/07/18 at 11:30; Stop 12/08/18 at 11:29 Albuterol/ Ipratropium (Duoneb) 3 ml Q4H RESP THERAPY HHN ; Start 12/07/18 at 17:00 Prednisone (Prednisone) 40 mg DAILY PO ; Start 12/08/18 at 09:00 Amlodipine Besylate (Norvasc) 5 mg DAILY PO ; Start 12/08/18 at 09:00; Status UNV Atorvastatin Calcium (Lipitor) 40 mg QHS PO ; Start 12/07/18 at 21:00; Status UNV Ropinirole HCl (Requip) 0.25 mg HS PO ; Start 12/07/18 at 21:00; Status UNV Ziprasidone (Geodon) 60 mg BID PO ; Start 12/07/18 at 21:00; Status UNV Hydromorphone HCl (Dilaudid) 2 mg ONCE ONCE PO ; Start 12/07/18 at 15:00; Stop 12/07/18 at 15:01; Status UNV Acetaminophen/ Hydrocodone Bitart ([place] (5/325)) 1 tab Q6H PRN PO .MOD PAIN 4- 6; Start 12/07/18 at 15:00; Status UNV Enoxaparin Sodium (Lovenox) 30 mg DAILY SC ; Start 12/08/18 at 09:00; Status UNV Miscellaneous Information (* Miscellaneous Pharmacy Order) Discontinue current oral sulfonylur... ONCE ONCE XX ; Start 12/07/18 at 15:00; Stop 12/07/18 at 15:01; Status UNV Insulin Glargine (Lantus) 12 units DAILY@2000 SC ; Start 12/07/18 at 20:00; Status UNV Insulin Aspart (Novolog Insulin Pen) 5 unit WITH MEALS SC ; Start 12/07/18 at 18:00; Status UNV Miscellaneous Information (* Miscellaneous Pharmacy Order) HYPOGLYCEMIA PROTOCOL w... ONCE ONCE XX ; Start 12/07/18 at 15:00; Stop 12/07/18 at 15:01; Status UNV Insulin Aspart (Novolog Insulin Pen) NOVOLOG *MILD* ALGORITHM WITH MEALS BEDTIME SC ; Start 12/07/18 at 18:00; Status UNV Coded Allergies: No Known Allergy (Unverified , 12/07/18) Exam/Review of Systems Vital Signs Vitals Vital Signs Date Temp Pulse Resp B/P (MAP) Pulse Ox O2 O2 Flow FiO2 Time Delivery Rate 12/07/18 98.8 114 22 124/63 95 Nasal 2.0 11:00 (83) Cannula GIL LERNER MD December 07, 2018 15:29
[2018-12-07] MEDS ORDERED: DEXTROSE 50% 50 ML SYRINGE IV PRN ×2 (15:30)
[2018-12-07] MEDS ORDERED: GLUCAGON 1 MG INJ IM PRN (15:30)
[2018-12-07] MEDS ORDERED: GLUCOSE GEL 15 GRAM TUBE PO PRN ×2 (15:30)
[2018-12-07] MEDS ORDERED: GLUCOSE GEL 15 GRAM TUBE BUCCAL PRN (15:30)
[2018-12-07] MEDS: ALBUTEROL/IPRATROPIUM (NEB) 3 ML AMP HHN SCH ×2 (17:00→20:15)
[2018-12-07 17:30] VITALS: BP 146/68; PULSE 93; RESP 18
[2018-12-07] MEDS: HYDROCODONE/APAP (5/325) TAB PO PRN (18:09)
[2018-12-07] MEDS: INSULIN ASPART [NOVOLOG] 3 ML PEN SC SCH ×3 (18:11→21:31)
[2018-12-07 18:35] VITALS: Ht 162.6 cm; Wt 74.9 kg
[2018-12-07 19:00] VITALS: RESP 18
[2018-12-07] MEDS ORDERED: INSULIN GLARGINE [LANTus] (100 UNITS/ML) SYG SC SCH (20:00)
[2018-12-07 20:30] VITALS: BP 123/75; PULSE 89; RESP 18
[2018-12-07] MEDS: ZIPRASIDONE 20 MG CAP PO SCH (21:26)
[2018-12-07] MEDS: ATORVASTATIN 40 MG TAB PO SCH (21:26)
[2018-12-07] MEDS: ROPINIROLE 0.25 MG TAB PO SCH (23:27)
[2018-12-08] MEDS: ALBUTEROL/IPRATROPIUM (NEB) 3 ML AMP HHN SCH ×6 (01:40→20:59)
[2018-12-08 02:19] VITALS: BP 149/83; PULSE 82; RESP 16
[2018-12-08] MEDS: HYDROCODONE/APAP (5/325) TAB PO PRN ×4 (03:52→23:49)
[2018-12-08 08:00] VITALS: BP 150/69; PULSE 81; RESP 18
[2018-12-08] MEDS: ENOXAPARIN 30 MG/0.3 ML SYG SC SCH (08:40)
[2018-12-08] MEDS: INSULIN ASPART [NOVOLOG] 3 ML PEN SC SCH ×7 (08:41→21:18)
[2018-12-08] MEDS: ZIPRASIDONE 20 MG CAP PO SCH ×2 (08:42→21:10)
[2018-12-08] MEDS: predniSONE 20 MG TAB PO SCH (08:42)
[2018-12-08] MEDS: AMLODIPINE 5 MG TAB PO SCH (08:43)
[2018-12-08] MEDS: AZITHROMYCIN 250 MG TAB PO SCH (12:48)
[2018-12-08] MEDS: CEFTRIAXONE 1 GM/50 ML (PMX) 50 ML IVPB SCH (12:49)
[2018-12-08] MEDS: KETOROLAC 15 MG INJ IV PRN ×2 (13:14→21:14)
[2018-12-08] MEDS ORDERED: ACETAMINOPHEN 325 MG TAB PO PRN (13:30)
[2018-12-08 14:00] VITALS: BP 135/62; PULSE 96; RESP 19
--- NOTE | 2018-12-08 14:02 | PN ---
Date/Time of Note Date/Time of Note DATE: 12/08/18 TIME: 13:59 Assessment/Plan VTE Prophylaxis Risk score (from Nsg)>0 risk: 4 SCD applied (from Nsg): Yes Pharmacological prophylaxis: heparin Lines/Catheters IV Catheter Type (from Nrsg): port Urinary Cath still in place: No Assessment/Plan Hospital Course Alert Oriented Tardive dyskinesia of face Edentulous Comfortable respiratory pattern nonlabored Faint wheezing, productive cough RRR Soft nt nd no edema Flat neck veins 63 yo female with h/o COPD, breast cancer, schizophernia, DMII presents wtih acute hypoxic respiratory failure likely 2/2 copd exacerbation COPD exacerbation: - Bronchodilators, steroids, abx, and O2 as needed Schizophrenia: - Continue geodon DMII: - Basal/bolus insulin Pain: - [place] PRN, toradol PRN Discharge likely tomorrow Result Diagram: 12/08/18 0525 12/08/18 0525 Results 24hrs Laboratory Tests Test 12/07/18 16:08 12/07/18 18:01 12/07/18 21:22 12/08/18 01:59 Lactic Acid Level 5.6 *H Bedside Glucose 338 H 306 H 237 H Test 12/08/18 05:25 12/08/18 08:38 12/08/18 12:45 White Blood Count 8.4 # Red Blood Count 4.85 Hemoglobin 12.0 Hematocrit 38.4 Mean Corpuscular 79.2 L Volume Mean Corpuscular 24.7 L Hemoglobin Mean Corpuscular 31.3 L Hemoglobin Concent Red Cell 15.8 H Distribution Width Platelet Count 175 # Mean Platelet Volume 10.6 H Immature 0.800 H Granulocytes % Neutrophils % 76.4 Lymphocytes % 13.1 L Monocytes % 9.5 Eosinophils % 0.1 Basophils % 0.1 Nucleated Red Blood 0.0 Cells % Immature 0.070 H Granulocytes # Neutrophils # 6.4 Lymphocytes # 1.1 Monocytes # 0.8 Eosinophils # 0.0 Basophils # 0.0 Nucleated Red Blood 0.0 Cells # Sodium Level 139 Potassium Level 4.3 Chloride Level 105 Carbon Dioxide Level 25 Anion Gap 9 Blood Urea Nitrogen 14 Creatinine 0.74 Est Glomerular > 60 Filtrat Rate mL/min Glucose Level 231 H Hemoglobin A1c 8.6 H Lactic Acid Level 1.1 Calcium Level 9.9 Total Bilirubin 0.3 Direct Bilirubin 0.00 Indirect Bilirubin 0.3 Aspartate Amino 14 L Transf (AST/SGOT) Alanine 25 Aminotransferase (AL T/SGPT) Alkaline Phosphatase 97 Total Protein 6.7 Albumin 3.9 Globulin 2.80 Albumin/Globulin 1.39 Ratio Bedside Glucose 190 277 H Subjective 24 Hr Interval Summary Free Text/Dictation Still feeling SOB but work of breathing and wheezing improved Continues to request opiates for neuropathic pain Exam/Review of Systems Exam Vitals Vital Signs Date Temp Pulse Resp B/P (MAP) Pulse Ox O2 O2 Flow FiO2 Time Delivery Rate 12/08/18 87 20 98 Nasal 2.0 12:49 Cannula 12/08/18 98.9 150/69 08:00 (96) Intake and Output 12/07/18 12/07/18 12/08/18 1515:00 23:00 07:00 IntakeIntake Total 300 ml 300 ml 320 ml BalanceBalance 300 ml 300 ml 320 ml Results Results 24hrs Laboratory Tests Test 12/07/18 16:08 12/07/18 18:01 12/07/18 21:22 12/08/18 01:59 Lactic Acid Level 5.6 *H Bedside Glucose 338 H 306 H 237 H Test 12/08/18 05:25 12/08/18 08:38 12/08/18 12:45 White Blood Count 8.4 # Red Blood Count 4.85 Hemoglobin 12.0 Hematocrit 38.4 Mean Corpuscular 79.2 L Volume Mean Corpuscular 24.7 L Hemoglobin Mean Corpuscular 31.3 L Hemoglobin Concent Red Cell 15.8 H Distribution Width Platelet Count 175 # Mean Platelet Volume 10.6 H Immature 0.800 H Granulocytes % Neutrophils % 76.4 Lymphocytes % 13.1 L Monocytes % 9.5 Eosinophils % 0.1 Basophils % 0.1 Nucleated Red Blood 0.0 Cells % Immature 0.070 H Granulocytes # Neutrophils # 6.4 Lymphocytes # 1.1 Monocytes # 0.8 Eosinophils # 0.0 Basophils # 0.0 Nucleated Red Blood 0.0 Cells # Sodium Level 139 Potassium Level 4.3 Chloride Level 105 Carbon Dioxide Level 25 Anion Gap 9 Blood Urea Nitrogen 14 Creatinine 0.74 Est Glomerular > 60 Filtrat Rate mL/min Glucose Level 231 H Hemoglobin A1c 8.6 H Lactic Acid Level 1.1 Calcium Level 9.9 Total Bilirubin 0.3 Direct Bilirubin 0.00 Indirect Bilirubin 0.3 Aspartate Amino 14 L Transf (AST/SGOT) Alanine 25 Aminotransferase (AL T/SGPT) Alkaline Phosphatase 97 Total Protein 6.7 Albumin 3.9 Globulin 2.80 Albumin/Globulin 1.39 Ratio Bedside Glucose 190 277 H Medications Medication Current Medications Albuterol/ Ipratropium (Duoneb) 3 ml Q4H RESP THERAPY HHN Last administered on 12/08/18 12:49; Admin Dose 3 ML; Start 12/07/18 at 17:00 Prednisone (Prednisone) 40 mg DAILY PO Last administered on 12/08/18 08:42; Admin Dose 40 MG; Start 12/08/18 at 09:00 Amlodipine Besylate (Norvasc) 5 mg DAILY PO Last administered on 12/08/18 08:43; Admin Dose 5 MG; Start 12/08/18 at 09:00 Atorvastatin Calcium (Lipitor) 40 mg QHS PO Last administered on 12/07/18 21:26; Admin Dose 40 MG; Start 12/07/18 at 21:00 Ropinirole HCl (Requip) 0.25 mg HS PO Last administered on 12/07/18 23:27; Admin Dose 0.25 MG; Start 12/07/18 at 21:00 Ziprasidone (Geodon) 60 mg BID PO Last administered on 12/08/18 08:42; Admin Dose 60 MG; Start 12/07/18 at 21:00 Acetaminophen/ Hydrocodone Bitart ([place] (5/325)) 1 tab Q6H PRN PO .MOD PAIN 4- 6 Last administered on 12/08/18 11:27; Admin Dose 1 TAB; Start 12/07/18 at 15:00 Enoxaparin Sodium (Lovenox) 30 mg DAILY SC Last administered on 12/08/18 08:40; Admin Dose 30 MG; Start 12/08/18 at 09:00 Insulin Glargine (Lantus) 12 units DAILY@2000 SC Last administered on 12/07/18 21:31; Admin Dose 12 UNITS; Start 12/07/18 at 20:00 Insulin Aspart (Novolog Insulin Pen) 5 unit WITH MEALS SC Last administered on 12/08/18 12:46; Admin Dose 5 UNIT; Start 12/07/18 at 17:37 Insulin Aspart (Novolog Insulin Pen) NOVOLOG *MILD* ALGORITHM WITH MEALS BED TIME SC Last administered on 12/08/18at 12:47; Admin Dose 4 UNIT; Start 12/07/18 at 18:00 Miscellaneous Information 1 ea NOTE XX ; Start 12/07/18 at 15:30 Glucose (Glutose) 15 gm Q15M PRN PO DECREASED GLUCOSE; Start 12/07/18 at 15:30 Glucose (Glutose) 22.5 gm Q15M PRN PO DECREASED GLUCOSE; Start 12/07/18 at 15:30 Dextrose (D50w Syringe) 25 ml Q15M PRN IV DECREASED GLUCOSE; Start 12/07/18 at 15:30 Dextrose (D50w Syringe) 50 ml Q15M PRN IV DECREASED GLUCOSE; Start 12/07/18 at 15:30 Glucagon (Glucagen) 1 mg Q15M PRN IM DECREASED GLUCOSE; Start 12/07/18 at 15:30 Glucose (Glutose) 15 gm Q15M PRN BUCCAL DECREASED GLUCOSE; Start 12/07/18 at 15:30 Ceftriaxone Sodium 50 ml @ 100 mls/hr Q24H IVPB Last administered on 12/08/18at 12:49; Admin Dose 100 MLS/HR; Start 12/08/18 at 12:00 Azithromycin (Zithromax) 250 mg DAILY PO Last administered on 12/08/18at 12:48; Admin Dose 250 MG; Start 12/08/18 at 12:30 Ketorolac Tromethamine (Toradol) 15 mg Q6H PRN IV PAIN Last administered on 12/08/18at 13:14; Admin Dose 15 MG; Start 12/08/18 at 13:00; Stop 12/11/18 at 12:59 Acetaminophen (Tylenol Tab) 650 mg Q6H PRN PO MILD PAIN(1-3)OR ELEVATED TEMP; Start 12/08/18 at 13:30 GIL LERNER MD December 08, 2018 14:02
--- NOTE | 2018-12-08 14:30 | CONS ---
DATE OF ADMISSION: 12/07/2018 DATE OF CONSULTATION: TYPE OF CONSULTATION: Pulmonary. REASON FOR CONSULTATION: Shortness of breath. Thank you, Dr. Washington, for this consultation. HISTORY OF PRESENT ILLNESS: This is a 63-year-old lady with an extensive prior tobacco history inclu ding history of breast cancer, schizophrenia, came in with several-day history of increasing shortnes s of breath, orthopnea, PND, increasing cough and chest congestion. She has yellow-green productive sputum, but denies any fever or chills. She has a previous extensive tobacco history. States she qu it smoking 1 year ago. The patient also states she is currently on home O2. PAST MEDICAL HISTORY: As above. MEDICATIONS: Per chart. ALLERGIES: NONE. SOCIAL HISTORY: Nonsmoker, no alcohol, no history of drug use. FAMILY HISTORY: Noncontributory. SYSTEMS REVIEW: A 12-point review of systems was negative other than as mentioned above. PHYSICAL EXAMINATION: GENERAL: Elderly-appearing lady, appears comfortable at rest, in no acute distress. VITAL SIGNS: Currently afebrile, temperature 98, pulse 87, blood pressure 150/69, O2 saturation 98% on 2 liters. NECK: Supple. She is edentulous with evidence of tardive dyskinesia. CARDIAC: S1, S2. No added sounds or murmurs. CHEST: Diminished air entry bilaterally with rhonchi. ABDOMEN: Soft, nontender. No guarding or rebound. EXTREMITIES: No cyanosis, clubbing. A 1+ edema. NEUROLOGIC: Grossly intact. No focal deficits. DIAGNOSTIC DATA: Chest x-ray showed mild vascular congestion. No infiltrates or effusions. LABORATORY DATA: White count 8.4, hemoglobin 12.0. BNP 175. Chemistry within normal limits. IMPRESSION AND PLAN: 1. Likely chronic obstructive pulmonary disease exacerbation. 2. Possible community-acquired pneumonia or tracheobronchitis. 3. Underlying history of schizophrenia. 4. History of breast cancer. The patient will require: 1. Continue antibiotics. 2. Bronchodilators. 3. Supplemental O2. 4. Check procalcitonin for evaluation of infection. 5. 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 Dictated By: MADIE WEINSTEIN/ECHO Conf#: [id number] DID#: [id number] CC: GIL WASHINGTON MD;*End*
[2018-12-08 20:34] VITALS: BP 145/93; PULSE 79; RESP 20
[2018-12-08] MEDS: ROPINIROLE 0.25 MG TAB PO SCH (21:10)
[2018-12-08] MEDS: ATORVASTATIN 40 MG TAB PO SCH (21:14)
[2018-12-08] MEDS: INSULIN GLARGINE [LANTus] (100 UNITS/ML) SYG SC SCH (21:17)
[2018-12-09] MEDS ORDERED: traZODone 50 MG TAB PO ONE (01:00)
[2018-12-09] MEDS: ALBUTEROL/IPRATROPIUM (NEB) 3 ML AMP HHN SCH ×6 (01:06→20:49)
[2018-12-09 02:30] VITALS: BP 130/59; PULSE 79; RESP 20
[2018-12-09 07:30] VITALS: BP 149/66; PULSE 78; RESP 18
[2018-12-09] MEDS: AMLODIPINE 5 MG TAB PO SCH (08:31)
[2018-12-09] MEDS: KETOROLAC 15 MG INJ IV PRN ×3 (08:31→21:39)
[2018-12-09] MEDS: ZIPRASIDONE 20 MG CAP PO SCH ×2 (08:31→21:25)
[2018-12-09] MEDS: predniSONE 20 MG TAB PO SCH (08:31)
[2018-12-09] MEDS: AZITHROMYCIN 250 MG TAB PO SCH (08:31)
[2018-12-09] MEDS: ENOXAPARIN 30 MG/0.3 ML SYG SC SCH (08:33)
[2018-12-09] MEDS: INSULIN ASPART [NOVOLOG] 3 ML PEN SC SCH ×7 (08:35→21:33)
[2018-12-09] MEDS: HYDROCODONE/APAP (5/325) TAB PO PRN ×3 (09:38→23:59)
[2018-12-09] MEDS ORDERED: HYDROmorphONE 1 MG/ML SYG IV ONE (11:00)
[2018-12-09] MEDS: CEFTRIAXONE 1 GM/50 ML (PMX) 50 ML IVPB SCH (11:22)
--- NOTE | 2018-12-09 11:34 | CONS ---
Consult Date/Type/Reason Admit Date/Time December 07, 2018 at 11:09 Initial Consult Date Type of Consult Pulmonary Date/Time of Note DATE: 12/09/18 TIME: 11:32 Subjective Patient stable this morning states her breathing is improving Objective Vital Signs Date Temp Pulse Resp B/P (MAP) Pulse Ox O2 O2 Flow FiO2 Time Delivery Rate 12/09/18 2.0 10:21 12/09/18 74 18 96 Nasal 08:49 Cannula 12/09/18 97.5 149/66 07:30 (93) Intake and Output 12/08/18 12/08/18 12/09/18 1515:00 23:00 07:00 IntakeIntake Total 50 ml 1100 ml BalanceBalance 50 ml 1100 ml Exam GENERAL: Well-nourished well-developed lady comfortable at rest VITAL SIGNS: per chart NECK: Supple. No JVD or lymphadenopathy. CARDIAC EXAM: S1, S2. No added sounds or murmurs. CHEST: Diminished air entry bilaterally but improved bronchospasm ABDOMEN: Soft, nontender. No guarding or rebound. EXTREMITIES: No cyanosis, clubbing or edema. NEUROLOGIC: Generalized weakness. No focal deficits. Results/Medications Result Diagram: 12/08/18 0525 12/08/18 0525 Results 24 hrs Laboratory Tests Test 12/08/18 12:45 12/08/18 14:56 12/08/18 17:20 12/08/18 21:08 Bedside Glucose 277 H 252 H 247 H Procalcitonin 0.07 Test 12/09/18 02:00 12/09/18 07:57 Bedside Glucose 245 H 258 H Medications Current Medications Albuterol/ Ipratropium (Duoneb) 3 ml Q4H RESP THERAPY HHN Last administered on 12/09/18at 08:48; Admin Dose 3 ML; Start 12/07/18 at 17:00 Prednisone (Prednisone) 40 mg DAILY PO Last administered on 12/09/18 08:31; Admin Dose 40 MG; Start 12/08/18 at 09:00 Amlodipine Besylate (Norvasc) 5 mg DAILY PO Last administered on 12/09/18 08:31; Admin Dose 5 MG; Start 12/08/18 at 09:00 Atorvastatin Calcium (Lipitor) 40 mg QHS PO Last administered on 12/08/18at 21:14; Admin Dose 40 MG; Start 12/07/18 at 21:00 Ropinirole HCl (Requip) 0.25 mg HS PO Last administered on 12/08/18at 21:10; Admin Dose 0.25 MG; Start 12/07/18 at 21:00 Ziprasidone (Geodon) 60 mg BID PO Last administered on 12/09/18 08:31; Admin Dose 60 MG; Start 12/07/18 at 21:00 Acetaminophen/ Hydrocodone Bitart ([place] (5/325)) 1 tab Q6H PRN PO .MOD PAIN 4- 6 Last administered on 12/09/18 09:38; Admin Dose 1 TAB; Start 12/07/18 at 15:00 Enoxaparin Sodium (Lovenox) 30 mg DAILY SC Last administered on 12/09/18 08:33; Admin Dose 30 MG; Start 12/08/18 at 09:00 Insulin Aspart (Novolog Insulin Pen) 5 unit WITH MEALS SC Last administered on 12/09/18 08:35; Admin Dose 5 UNIT; Start 12/07/18 at 17:37 Insulin Aspart (Novolog Insulin Pen) NOVOLOG *MILD* ALGORITHM WITH MEALS BEDTIME SC Last administered on 12/09/18 08:37; Admin Dose 3 UNIT; Start 12/07/18 at 18:00 Miscellaneous Information 1 ea NOTE XX ; Start 12/07/18 at 15:30 Glucose (Glutose) 15 gm Q15M PRN PO DECREASED GLUCOSE; Start 12/07/18 at 15:30 Glucose (Glutose) 22.5 gm Q15M PRN PO DECREASED GLUCOSE; Start 12/07/18 at 15:30 Dextrose (D50w Syringe) 25 ml Q15M PRN IV DECREASED GLUCOSE; Start 12/07/18 at 15:30 Dextrose (D50w Syringe) 50 ml Q15M PRN IV DECREASED GLUCOSE; Start 12/07/18 at 15:30 Glucagon (Glucagen) 1 mg Q15M PRN IM DECREASED GLUCOSE; Start 12/07/18 at 15:30 Glucose (Glutose) 15 gm Q15M PRN BUCCAL DECREASED GLUCOSE; Start 12/07/18 at 15:30 Ceftriaxone Sodium 50 ml @ 100 mls/hr Q24H IVPB Last administered on 12/09/18at 11:22; Admin Dose 100 MLS/HR; Start 12/08/18 at 12:00 Azithromycin (Zithromax) 250 mg DAILY PO Last administered on 12/09/18at 08:31; Admin Dose 250 MG; Start 12/08/18 at 12:30 Ketorolac Tromethamine (Toradol) 15 mg Q6H PRN IV PAIN Last administered on 12/09/18at 08:31; Admin Dose 15 MG; Start 12/08/18 at 13:00; Stop 12/11/18 at 12:59 Acetaminophen (Tylenol Tab) 650 mg Q6H PRN PO MILD PAIN(1-3)OR ELEVATED TEMP; Start 12/08/18 at 13:30 Insulin Glargine (Lantus) 16 units DAILY@2000 SC Last administered on 12/08/18at 21:17; Admin Dose 16 UNITS; Start 12/08/18 at 20:00 Assessment/Plan Hospital Course (Demo Recall) Assessment 1. COPD exacerbation 2. Possible commute acquired pneumonia 3. History of schizophrenia 4. history of breast cancer Plan 1. Continue steroids and antibiotics 2. Patient has home O2 continue current flow rate 3. Outpatient pulmonary function testing and follow-up with or 4. Patient declined correction facility anticipate discharge tomorrow MADIE ROMERO MD, [facility] December 09, 2018 11:34
[2018-12-09 14:15] VITALS: BP 143/64; PULSE 94; RESP 18
--- NOTE | 2018-12-09 14:50 | PN ---
Date/Time of Note Date/Time of Note DATE: 12/09/18 TIME: 14:50 Assessment/Plan VTE Prophylaxis Risk score (from Nsg)>0 risk: 8 SCD applied (from Nsg): Yes Pharmacological prophylaxis: heparin Lines/Catheters IV Catheter Type (from Nrsg): port-a-cath Urinary Cath still in place: No Assessment/Plan Hospital Course Alert Oriented Tardive dyskinesia of face Edentulous Comfortable respiratory pattern nonlabored Faint wheezing, productive cough RRR Soft nt nd no edema Flat neck veins 63 yo female with h/o COPD, breast cancer, schizophernia, DMII presents wtih acute hypoxic respiratory failure likely 2/2 copd exacerbation COPD exacerbation: - Bronchodilators, steroids, abx, and O2 as needed Schizophrenia: - Continue geodon DMII: - Basal/bolus insulin Pain: - [place] PRN, toradol PRN Discharge likely tomorrow Result Diagram: 12/08/1825 12/08/18 0525 Results 24hrs Laboratory Tests Test 12/08/18 14:56 12/08/18 17:20 12/08/18 21:08 12/09/18 02:00 Procalcitonin 0.07 Bedside Glucose 252 H 247 H 245 H Test 12/09/18 07:57 12/09/18 12:02 Bedside Glucose 258 H 247 H Subjective 24 Hr Interval Summary Free Text/Dictation Breathing improving Offered SNF but she declines Exam/Review of Systems Exam Vitals Vital Signs Date Temp Pulse Resp B/P (MAP) Pulse Ox O2 O2 Flow FiO2 Time Delivery Rate 12/09/18 98.5 94 18 143/64 98 Nasal 14:15 (90) Cannula 12/09/18 2.0 10:21 Intake and Output 12/08/18 12/08/18 12/09/18 1515:00 23:00 07:00 IntakeIntake Total 50 ml 1100 ml BalanceBalance 50 ml 1100 ml Results Results 24hrs Laboratory Tests Test 12/08/18 14:56 12/08/18 17:20 12/08/18 21:08 12/09/18 02:00 Procalcitonin 0.07 Bedside Glucose 252 H 247 H 245 H Test 12/09/18 07:57 12/09/18 12:02 Bedside Glucose 258 H 247 H Medications Medication Current Medications Albuterol/ Ipratropium (Duoneb) 3 ml Q4H RESP THERAPY HHN Last administered on 12/09/18 08:48; Admin Dose 3 ML; Start 12/07/18 at 17:00 Prednisone (Prednisone) 40 mg DAILY PO Last administered on 12/09/18 08:31; Admin Dose 40 MG; Start 12/08/18 at 09:00 Amlodipine Besylate (Norvasc) 5 mg DAILY PO Last administered on 12/09/18 08:31; Admin Dose 5 MG; Start 12/08/18 at 09:00 Atorvastatin Calcium (Lipitor) 40 mg QHS PO Last administered on 12/08/18 21 :14; Admin Dose 40 MG; Start 12/07/18 at 21:00 Ropinirole HCl (Requip) 0.25 mg HS PO Last administered on 12/08/18 21:10; Admin Dose 0.25 MG; Start 12/07/18 at 21:00 Ziprasidone (Geodon) 60 mg BID PO Last administered on 12/09/18 08:31; Admin Dose 60 MG; Start 12/07/18 at 21:00 Acetaminophen/ Hydrocodone Bitart ([place] (5/325)) 1 tab Q6H PRN PO .MOD PAIN 4- 6 Last administered on 12/09/18 09:38; Admin Dose 1 TAB; Start 12/07/18 at 15:00 Enoxaparin Sodium (Lovenox) 30 mg DAILY SC Last administered on 12/09/18 08:33; Admin Dose 30 MG; Start 12/08/18 at 09:00 Insulin Aspart (Novolog Insulin Pen) 5 unit WITH MEALS SC Last administered on 12/09/18 12:04; Admin Dose 5 UNIT; Start 12/07/18 at 17:37 Insulin Aspart (Novolog Insulin Pen) NOVOLOG *MILD* ALGORITHM WITH MEALS BEDTIME SC Last administered on 12/09/18 12:05; Admin Dose 3 UNIT; Start 12/07/18 at 18:00 Miscellaneous Information 1 ea NOTE XX ; Start 12/07/18 at 15:30 Glucose (Glutose) 15 gm Q15M PRN PO DECREASED GLUCOSE; Start 12/07/18 at 15:30 Glucose (Glutose) 22.5 gm Q15M PRN PO DECREASED GLUCOSE; Start 12/07/18 at 15 :30 Dextrose (D50w Syringe) 25 ml Q15M PRN IV DECREASED GLUCOSE; Start 12/07/18 at 15:30 Dextrose (D50w Syringe) 50 ml Q15M PRN IV DECREASED GLUCOSE; Start 12/07/18 at 15:30 Glucagon (Glucagen) 1 mg Q15M PRN IM DECREASED GLUCOSE; Start 12/07/18 at 15:30 Glucose (Glutose) 15 gm Q15M PRN BUCCAL DECREASED GLUCOSE; Start 12/07/18 at 15:30 Ceftriaxone Sodium 50 ml @ 100 mls/hr Q24H IVPB Last administered on 12/09/18at 11:22; Admin Dose 100 MLS/HR; Start 12/08/18 at 12:00 Azithromycin (Zithromax) 250 mg DAILY PO Last administered on 12/09/18at 08:31; Admin Dose 250 MG; Start 12/08/18 at 12:30 Ketorolac Tromethamine (Toradol) 15 mg Q6H PRN IV PAIN Last administered on 12/09/18 08:31; Admin Dose 15 MG; Start 12/08/18 at 13:00; Stop 12/11/18 at 12:59 Acetaminophen (Tylenol Tab) 650 mg Q6H PRN PO MILD PAIN(1-3)OR ELEVATED TEMP; Start 12/08/18 at 13:30 Insulin Glargine (Lantus) 16 units DAILY@2000 SC Last administered on 12/08/18at 21:17; Admin Dose 16 UNITS; Start 12/08/18 at 20:00 GIL LERNER MD December 09, 2018 14:50
[2018-12-09 20:15] VITALS: BP 148/71; PULSE 72; RESP 20
[2018-12-09] MEDS: ROPINIROLE 0.25 MG TAB PO SCH (21:26)
[2018-12-09] MEDS: ATORVASTATIN 40 MG TAB PO SCH (21:26)
[2018-12-09] MEDS: INSULIN GLARGINE [LANTus] (100 UNITS/ML) SYG SC SCH (21:31)
[2018-12-09] MEDS: HYDROmorphONE 0.5 MG/0.5 ML SYG IV PRN (21:34)
[2018-12-10] MEDS: ALBUTEROL/IPRATROPIUM (NEB) 3 ML AMP HHN SCH ×3 (01:35→08:07)
[2018-12-10] MEDS: HYDROmorphONE 0.5 MG/0.5 ML SYG IV PRN ×2 (01:50→08:38)
[2018-12-10 02:20] VITALS: BP 134/81; PULSE 67; RESP 18
[2018-12-10] MEDS: KETOROLAC 15 MG INJ IV PRN ×2 (03:38→09:49)
[2018-12-10] MEDS: AZITHROMYCIN 250 MG TAB PO SCH (08:41)
[2018-12-10] MEDS: ZIPRASIDONE 20 MG CAP PO SCH (08:41)
[2018-12-10] MEDS: AMLODIPINE 5 MG TAB PO SCH (08:41)
[2018-12-10] MEDS: predniSONE 20 MG TAB PO SCH (08:41)
[2018-12-10] MEDS: ENOXAPARIN 30 MG/0.3 ML SYG SC SCH (08:42)
[2018-12-10] MEDS: INSULIN ASPART [NOVOLOG] 3 ML PEN SC SCH ×4 (08:43→12:00)
[2018-12-10 10:37] VITALS: BP 171/79; PULSE 69; RESP 18
[2018-12-10] MEDS ORDERED: PRED20TA PO (10:54)
[2018-12-10] MEDS ORDERED: ADV25050 INHALATION (10:54)
[2018-12-10] MEDS ORDERED: ALBU90AE INHALATION (10:54)
[2018-12-10] MEDS ORDERED: METF500T24 PO (10:54)
--- NOTE | 2018-12-10 10:55 | PDOCDIS ---
Discharge Instructions DIAGNOSIS Discharge Diagnosis COPD exacerbation CONDITION [id number] Patient Condition: [id number] Stable FOLLOW UP/APPOINTMENTS Follow-up Plan I have prescribed your more days of prednisone to take for your COPD exacerbation, available to parts picker at [facility] Continue your inhalers as prescribed Increase your metformin dose from 500 mg to 1000 mg Check in with your primary care provider regarding detention management of your diabetes GIL LERNER MD December 10, 2018 10:55
[2018-12-10] MEDS: HYDROCODONE/APAP (5/325) TAB PO PRN (12:02)
[2018-12-10] MEDS: CEFTRIAXONE 1 GM/50 ML (PMX) 50 ML IVPB SCH (12:03)
--- NOTE | 2018-12-10 14:19 | CONS ---
Consult Date/Type/Reason Admit Date/Time December 07, 2018 at 11:09 Initial Consult Date Type of Consult Pulmonary Date/Time of Note DATE: 12/10/18 TIME: 14:18 Subjective Patient comfortable this morning. Less shortness of breath Objective Vital Signs Date Temp Pulse Resp B/P (MAP) Pulse Ox O2 O2 Flow FiO2 Time Delivery Rate 12/10/18 98.1 69 18 171/79 96 Room Air 10:37 (109) 12/10/18 2.0 08:36 12/10/18 27 01:35 Intake and Output 12/09/18 12/09/18 12/10/18 1515:00 23:00 07:00 IntakeIntake Total 550 ml 450 ml BalanceBalance 550 ml 450 ml Exam GENERAL: Well-nourished well-developed lady comfortable at rest VITAL SIGNS: per chart NECK: Supple. No JVD or lymphadenopathy. CARDIAC EXAM: S1, S2. No added sounds or murmurs. CHEST: clear bilaterally, No added sounds, rales or wheezes ABDOMEN: Soft, nontender. No guarding or rebound. EXTREMITIES: No cyanosis, clubbing or edema. NEUROLOGIC: Generalized weakness. No focal deficits. Vent Setting Fraction of Inspired Oxygen pe: 27 Results/Medications Result Diagram: 12/08/18 0525 12/08/18 0525 Results 24 hrs Laboratory Tests Test 12/09/18 17:11 12/09/18 21:23 12/10/18 03:03 12/10/18 07:56 Bedside Glucose 344 H 231 H 279 H 193 Test 12/10/18 11:44 Bedside Glucose 284 H Medications Current Medications Albuterol/ Ipratropium (Duoneb) 3 ml Q4H RESP THERAPY HHN Last administered on 12/10/18at 08:07; Admin Dose 3 ML; Start 12/07/18 at 17:00 Prednisone (Prednisone) 40 mg DAILY PO Last administered on 12/10/18 08:41; Admin Dose 40 MG; Start 12/08/18 at 09:00 Amlodipine Besylate (Norvasc) 5 mg DAILY PO Last administered on 12/10/18 08:41; Admin Dose 5 MG; Start 12/08/18 at 09:00 Atorvastatin Calcium (Lipitor) 40 mg QHS PO Last administered on 12/09/18at 21:26; Admin Dose 40 MG; Start 12/07/18 at 21:00 Ropinirole HCl (Requip) 0.25 mg HS PO Last administered on 12/09/18 21:26; Admin Dose 0.25 MG; Start 12/07/18 at 21:00 Ziprasidone (Geodon) 60 mg BID PO Last administered on 12/10/18 08:41; Admin Dose 60 MG; Start 12/07/18 at 21:00 Acetaminophen/ Hydrocodone Bitart ([place] (5/325)) 1 tab Q6H PRN PO .MOD PAIN 4- 6 Last administered on 12/10/18 12:02; Admin Dose 1 TAB; Start 12/07/18 at 15:00 Enoxaparin Sodium (Lovenox) 30 mg DAILY SC Last administered on 12/10/18 08:42; Admin Dose 30 MG; Start 12/08/18 at 09:00 Insulin Aspart (Novolog Insulin Pen) 5 unit WITH MEALS SC Last administered on 12/10/18 11:59; Admin Dose 5 UNIT; Start 12/07/18 at 17:37 Insulin Aspart (Novolog Insulin Pen) NOVOLOG *MILD* ALGORITHM WITH MEALS BEDTIME SC Last administered on 12/10/18 12:00; Admin Dose 4 UNIT; Start 12/07/18 at 18:00 Miscellaneous Information 1 ea NOTE XX ; Start 12/07/18 at 15:30 Glucose (Glutose) 15 gm Q15M PRN PO DECREASED GLUCOSE; Start 12/07/18 at 15:30 Glucose (Glutose) 22.5 gm Q15M PRN PO DECREASED GLUCOSE; Start 12/07/18 at 15:30 Dextrose (D50w Syringe) 25 ml Q15M PRN IV DECREASED GLUCOSE; Start 12/07/18 at 15:30 Dextrose (D50w Syringe) 50 ml Q15M PRN IV DECREASED GLUCOSE; Start 12/07/18 at 15:30 Glucagon (Glucagen) 1 mg Q15M PRN IM DECREASED GLUCOSE; Start 12/07/18 at 15:30 Glucose (Glutose) 15 gm Q15M PRN BUCCAL DECREASED GLUCOSE; Start 12/07/18 at 15:30 Ceftriaxone Sodium 50 ml @ 100 mls/hr Q24H IVPB Last administered on 12/10/18at 12:03; Admin Dose 100 MLS/HR; Start 12/08/18 at 12:00 Azithromycin (Zithromax) 250 mg DAILY PO Last administered on 12/10/18at 08:41; Admin Dose 250 MG; Start 12/08/18 at 12:30 Ketorolac Tromethamine (Toradol) 15 mg Q6H PRN IV PAIN Last administered on 12/10/18at 09:49; Admin Dose 15 MG; Start 12/08/18 at 13:00; Stop 12/11/18 at 12:59 Acetaminophen (Tylenol Tab) 650 mg Q6H PRN PO MILD PAIN(1-3)OR ELEVATED TEMP; Start 12/08/18 at 13:30 Insulin Glargine (Lantus) 16 units DAILY@2000 SC Last administered on 12/09/18at 21:31; Admin Dose 16 UNITS; Start 12/08/18 at 20:00 Assessment/Plan Hospital Course (Demo Recall) Assessment 1. COPD exacerbation 2. Possible commute acquired pneumonia 3. History of schizophrenia 4. history of breast cancer Plan 1. Continue steroids and antibiotics 2. Patient has home O2 continue current flow rate 3. Outpatient pulmonary function testing and follow-up with me Agree with discharge planning. MADIE ROMERO MD, [facility] December 10, 2018 14:19
--- NOTE | 2018-12-10 15:12 | DS ---
Date/Time of Note Date/Time of Note DATE: 12/10/18 TIME: 15:11 Discharge Summary Admission/Discharge Info Admit Date/Time December 07, 2018 at 11:09 Discharge Date/Time December 10, 2018 at 14:18 Discharge Diagnosis COPD exacerbation Patient Condition: Stable Hx of Present Illness 63 yo female with COPD, schizophrenia, neuorpathy and DMII who presents wtih SOB [place] has had SOB and wheeazing for at least the last week. Has cough with productive sputum. No fevers or chills. Came to ED a few days ago for same symptoms and sent home. Returns with conitnued sOB, cough, wheeze Hospital Course 63 yo female with h/o COPD, breast cancer, schizophernia, DMII presents wtih acute hypoxic respiratory failure likely 2/2 copd exacerbation COPD exacerbation: - Was treated wtih Bronchodilators, steroids, and abx and respiratory status improved to baseline Schizophrenia: - Continued geodon DMII: - Basal/bolus insulin Pain: - [place] PRN, toradol PRN She was offered SNF but declined Home Meds Active Scripts Albuterol Sulfate (Proair Respiclick) 90 Mcg Aer.pow.ba, 2 PUFFS INHALATION Q6 PRN for SHORTNESS OF BREATH, #1 BOTTLE 5 Refills Prov:GIL LERNER MD 12/10/18 Prednisone* (Prednisone*) 20 Mg Tab, 40 MG PO DAILY for 4 Days, #4 TAB Prov:GIL LERNER MD 12/10/18 Salmeterol Xinaf/Fluticasone* (Advair*) 250-50 Diskus Inhaler, 1 INH INHALATION BID for 30 Days, #1 INHALER 5 Refills Prov:GIL LERNER MD 12/10/18 Metformin Hcl* (Metformin Hcl*) 500 Mg Tablet, 1000 MG PO WITH BREAKFAST DINNE, #120 TAB 5 Refills Prov:GIL LERNER MD 12/10/18 Reported Medications Ziprasidone* (Geodon*) 60 Mg Capsule, 60 MG PO BID, CAP 12/07/18 Ropinirole Hcl* (Ropinirole Hcl*) 0.25 Mg Tablet, 0.25 MG PO HS, TAB 12/07/18 Lorazepam* (Ativan*) 2 Mg Tablet, 2 MG PO DAILY PRN for ANXIETY, #30 TAB 12/07/18 Insulin Aspart* (Novolog Insulin Pen*) 100 Unit/Ml Soln, 4 UNIT SC WITH MEALS, EA 12/07/18 Insulin Glargine* (Lantus*) 100 Unit/Ml Soln, 4 UNIT SC DAILY, #1 VIAL 12/07/18 Atorvastatin* (Atorvastatin*) 40 Mg Tablet, 40 MG PO QHS, #30 TAB 12/07/18 Amlodipine Besylate* (Norvasc*) 5 Mg Tablet, 5 MG PO DAILY, TAB 12/07/18 Discontinued Reported Medications Fentanyl Patch* (Duragesic Patch*) 12 Mcg/Hr Transdermal Patch, 1 PATCH TD Q72H PRN for PAIN, PATCH 07/07/17 Insulin Glargine* (Lantus*) 100 Unit/Ml Soln, 6 UNIT SC DAILY, #1 VIAL 07/06/17 Metformin* (Glucophage*) 500 Mg Tab, 500 MG PO BID, #30 TAB 07/06/17 Lorazepam* (Ativan*) 2 Mg Tablet, 2 MG PO DAILY PRN for ANXIETY, #30 TAB 07/06/17 Amlodipine Besylate* (Amlodipine Besylate*) 5 Mg Tablet, 5 MG PO DAILY, #30 TAB 07/06/17 Ropinirole Hcl* (Ropinirole Hcl*) 0.25 Mg Tablet, 0.25 MG PO HS, TAB 07/06/17 Atorvastatin* (Atorvastatin*) 40 Mg Tablet, 40 MG PO QHS, #30 TAB 07/06/17 Ondansetron Hcl* (Zofran*) 8 Mg Tab, 8 MG PO Q8 PRN for NAUSEA AND OR VOMITING, TAB 07/06/17 Salmeterol Xinaf/Fluticasone* (Advair*) 250-50 Diskus Inhaler, 1 INH INHALATION BID, #1 INHALER 07/06/17 Ziprasidone* (Geodon*) 60 Mg Capsule, 60 MG PO BID, CAP 07/06/17 Discontinued Scripts Nitrofurantoin Monohyd Macrocr* (Macrobid*) 100 Mg Capsr, 100 MG PO BID for 7 Days, CAP Prov:BRYCE STANTON MD 12/03/18 Salmeterol Xinaf-Fluticasone* (Advair*) 100/50 Diskus Inhaler, 1 INH INHALATION BID, #1 INHALER Prov:MALCOLM GAO NP 07/15/17 Albuterol Sulfate* (Proair HFA*) 8.5 Gm Hfa.aer.ad, 2 PUFF INH Q4H PRN for WHEEZING AND SOB, #1 INHALER Prov:GAO,MALCOLM V. SENIOR AUDITOR 07/15/17 Ferrous Fumarate/Ascorbic Acid (Jitendra-Sequels 65-25 mg Caplet) 1 Each Tablet.er, 1 TAB PO DAILY, #30 TAB Prov:GAO,MALCOLM V. SENIOR AUDITOR 07/15/17 Montelukast Sodium* (Montelukast Sodium*) 10 Mg Tablet, 10 MG PO HS, #30 TAB Prov:GAO,MALCOLM V. SENIOR AUDITOR 07/15/17 Follow-up Plan I have prescribed your more days of prednisone to take for your COPD exacerbation, available to pickling drum operator at [facility] Continue your inhalers as prescribed Increase your metformin dose from 500 mg to 1000 mg Check in with your primary care provider regarding fpc management of your diabetes Primary Care Provider Care Physician No Primary Pending Labs Laboratory Tests Test 12/09/18 17:11 12/09/18 21:23 12/10/18 03:03 12/10/18 07:56 Bedside 344 231 279 193 Glucose mg/dL (70-220) mg/dL (70-220) mg/dL (70-220) mg/dL (70-220) Test 12/10/18 11:44 Bedside 284 Glucose mg/dL (70-220) GIL LERNER MD December 10, 2018 15:12
== END 2018-12-10 14:18 | disposition home or self-care (01) | DRG 190 ==
LOC: E/R 09:01 → PP2 11:09 → SUATTDRO 14:14
PROVIDERS: ADMIT Internal Medicine; ATTEND Internal Medicine
PROC: 3E0F7GC Introduction of Other Therapeutic Substance into Respiratory Tract, Via Natural or Artificial Opening (ICD-10-PCS; principal; 2018-12-07)
DX: J44.1 Chronic obstructive pulmonary disease with (acute) exacerbation (principal); J96.01 Acute respiratory failure with hypoxia; J18.9 Pneumonia, unspecified organism; I69.354 Hemiplegia and hemiparesis following cerebral infarction affecting left non-dominant side; F17.210 Nicotine dependence, cigarettes, uncomplicated; E11.9 Type 2 diabetes mellitus without complications; F20.9 Schizophrenia, unspecified; Z85.3 Personal history of malignant neoplasm of breast; Z79.4 Long term (current) use of insulin
CPT/HCPCS: 36415; 71045; 80048; 80053; 82962; 83036; 83605; 84145; 84484; 85025; 93005; 94640; 94664; 96365; 96375; 97116; 97162; 97530; J0456; J0696; J1170; J1650; J1815; J1885; J2930; J7512